=== PATIENT | male | born 1995 | race Caucasian/White ===

== ENCOUNTER → 2020-09-29 10:07 | Outpatient (CLI) | payer BC, SELFPAY ==
--- NOTE | 2020-09-29 10:28 | XR_ITS ---
PROCEDURE: XR KNEE LT 3V CLINICAL INDICATION: GRETA KNEE PAIN COMPARISON: No exams were available for comparison FINDINGS: No fracture or dislocation. No lytic or blastic change. There is normal mineralization. The joint spaces are well-preserved. No significant degenerative/arthritic changes. No erosive changes evident. Other findings:None. IMPRESSION: No acute findings. Dictated by: Christa Castellanos 09/29/2020 11:14 Christa Castellanos in [facility] 09/29/2020 11:14
--- NOTE | 2020-09-29 10:28 | XR_ITS ---
PROCEDURE: XR KNEE RT 3V CLINICAL INDICATION: GRETA KNEE PAIN Bilateral knee pain medial side of the right knee. COMPARISON: CR XR KNEE LT 3V from 09/29/2020 FINDINGS: No fracture or dislocation. No lytic or blastic change. There is normal mineralization. The joint spaces are well-preserved. No significant degenerative/arthritic changes. No erosive changes evident. Other findings:None. IMPRESSION: No acute findings. Dictated by: Christa Castellanos 09/29/2020 11:13 Christa Castellanos in [facility] 09/29/2020 11:13
[2020-09-29 10:30] LABS: Basophils # 0.1 K/mm3 (0-0.2); Basophils % 1.4 % (0.1-2.0); Eosinophils # 0.3 K/mm3 (0.0-0.4); Eosinophils % 7.9 % (0.1-12.0); Hematocrit 44.6 % (42.0-52.0); Lymphocytes # 1.9 K/mm3 (0.7-4.5); Lymphocytes % 44.9 % (10-50); Mean Corpuscular HGB Conc 33.8 g/dL (31.8-35.4); Mean Corpuscular Hemoglobin 30.4 pg (27.0-31.2); Mean Corpuscular Volume 90.1 fl (80-94); Mean Platelet Volume 7.3 fl (7.4-10.4); Monocytes # 0.3 K/mm3 (0.1-1.0); Monocytes % 6.6 % (1.7-9.3); Neutrophils # 1.7 K/mm3 (1.8-7.8); Neutrophils % 39.1 % (37.0-80.0); Platelet Count 244 K/mm3 (142-424); Red Blood Count 4.94 M/mm3 (4.60-6.20); Red Cell Distribution Width 13.5 % (11.5-17.5); White Blood Count 4.2 K/mm3 (4.8-10.8)
[2020-09-29 10:47] LABS: Chloride 105 mmol/L (98-107); Sodium 140 mmol/L (136-145)
[2020-09-29 10:48] LABS: Potassium 4.7 mmoL/L (3.5-5.1)
[2020-09-29 10:50] LABS: Alanine Aminotransferase 41 U/L (12-78); Albumin/Globulin Ratio 1.6 (1.1-1.8); Alkaline Phosphatase 55 U/L (38-126); Anion Gap 7.7 mEq/L (5-15); Aspartate Amino Transferase 40 U/L (17-59); Bilirubin,Total 0.6 mg/dl (0.2-1.3); Blood Urea Nitrogen 21 mg/dl (9-20); Carbon Dioxide 32 mmol/L (22.0-30.0); Estimated Glomerular Filt Rate 80 ml/min (>60); GFR (African American) 97 ML/MIN (>60); Globulin 3.2 g/dL (1.3-3.2); Total Protein,Serum 8.2 g/dl (6.3-8.2)
[2020-09-29 10:51] LABS: Glucose 82 mg/dl (74-100)
[2020-09-29 11:01] LABS: Erythrocyte Sedimentation Rate 15 mm/hr (0-15)
[2020-09-30 14:27] LABS: Anti-Centromere B Antibodies <0.2 AI (0.0-0.9); Anti-Jo-1 <0.2 AI (0.0-0.9); Anti-Smith Antibody <0.2 AI (0.0-0.9); Antichromatin Antibodies <0.2 AI (0.0-0.9); Antiscleroderma-70 Antibodies <0.2 AI (0.0-0.9); RNP Antibodies <0.2 AI (0.0-0.9); Sjogren's Anti-SS-A <0.2 AI (0.0-0.9); Sjogren's Anti-SS-B <0.2 AI (0.0-0.9)
[2020-09-30 15:38] LABS: Anti-DNA (DS) Ab Qn 1 IU/mL (0-9)
[2020-10-01 17:54] LABS: Anti-Cyclic Citrullinated Pept 3 units (0-19)
== END ==
PROVIDERS: Visit Provider Internal Medicine Adolescent Medicine
DX: M25.562 Pain in left knee (principal); M25.561 Pain in right knee
CPT/HCPCS: 36415; 73562; 80053; 85025; 85651; 86200; 86225; 86235

== ENCOUNTER 2020-10-31 17:00 | Outpatient (RCR) | payer BC, SELFPAY ==
--- NOTE | 2020-10-10 16:41 | HMH.PTOPEV ---
PT Outpatient Evaluation Rehab PT Outpatient Evaluation Start: 10/10/20 16:23 Freq: Status: Active Protocol: Document 10/10/20 16:24 SUSIELIANNA (Rec: 10/10/20 16:40 RHETT [id number]) Electronically Signed By Kade Blas, PT 10/10/20 16:24 Outpatient Therapy Subjective History Subjective History Patient is a 25 year old male presenting to outpatient PT with reports of B knee knee pain (L>R) starting approximatley 2 months ago. Patient reports symptom onset after increased activity levels after a prolonged period of being sedentary secondary to COVID-19. No recent diagnostics to report. Comorbidities include hx of R radius ORIF. Chief Complaint Pain Symptom Type Ache,Sharp,Dull Symptoms Relieved By Ice,Prescription Meds Symptoms Aggravated By Standing,Physical Activity, Walking Prior Functional Limitations None Current Functional Limitations Standing,Squatting,Recreation Activity,Stairs Symptom Description Intermittent Level of pain today (0-10) 2 Pain scale - at its best (0-10) 0 Pain scale - at its worst (0-10) 5 Hip/Knee Eval Gait Observation General Gait Pattern Observation No Deviations/Normal Assistive Device Assistive Devices None / NA Palpation Tenderness bilateral Knee Palpation Finding Tenderness Knee Palpation Overall Comment Medial joint line/compartment 3/4 MMT Hip Flexion Strength Grade 5 Normal Hip Abduction Strength Grade 5 Normal Hip Adduction Strength Grade 5 Normal Hip Extension Strength Grade 5 Normal Hip External Rotation Strength Grade 4- Good- Hip Internal Rotation Strength Grade 4- Good- Knee Extension Strength Grade 5 Normal Knee Flexion Strength Grade 5 Normal ROM Hip ROM Reason Not Measured Within Functional Limits Knee ROM Reason Not Measured Within Functional Limits Special Tests Knee Anterior Belinda Test Negative Left,Negative Right Knee Pivot Shift Test Negative Left,Negative Right Knee Posterior Sag ([place] Drawer) Test Negative Left,Negative Right Knee Valgus Stress Test Negative Left,Negative Right Knee Varus Stress Test Negative Left,Negative Right Knee Celestino Test Negative Left,Negative Right Outpatient Therapy Assessment Impairments Problems/Impairmments Palpation Tenderness,Impaired Range of M
== END 2020-10-31 17:05 | disposition home or self-care (01) ==
LOC: PT 17:00
PROVIDERS: PCP Internal Medicine Adolescent Medicine; Visit Provider Internal Medicine Adolescent Medicine
DX: M25.561 Pain in right knee (principal); M25.562 Pain in left knee
CPT/HCPCS: 97010; 97014; 97033; 97035; 97110; 97163; G0283

== ENCOUNTER 2020-12-11 01:25 | Emergency (ER) | payer BC, SELFPAY ==
[2020-12-11 01:26] VITALS: BP 139/92; PULSE 81; RESP 16; TEMP 37.1; O2SAT 100; BMI 27.9
--- NOTE | 2020-12-11 02:52 | CT_ITS ---
PROCEDURE INFORMATION: Exam: CT Abdomen And Pelvis With Contrast Exam date and time: 12/11/2020 2:52 AM Age: 25 years old Clinical indication: Patient HX: Rectal pain x couple weeks but much worse tonight TECHNIQUE: Imaging protocol: Computed tomography of the abdomen and pelvis with contrast. Radiation optimization: All CT scans at this facility use at least one of these dose optimization techniques: automated exposure control; mA and/or kV adjustment per patient size (includes targeted exams where dose is matched to clinical indication); or iterative reconstruction. Contrast material: ISOVUE 370; Contrast volume: 75 ml; Contrast route: INTRAVENOUS (IV); Other contrast: Oral, gastroview, 30; COMPARISON: No relevant prior studies available. FINDINGS: Lungs: Left lung base markings/opacities consistent with subsegmental atelectasis and/or scarring noted, although superimposed infiltrates cannot be excluded. Mediastinal space: Small hiatal hernia. Liver: Unremarkable. No definable mass or enhancing hepatic lesion. Gallbladder and bile ducts: Normal. No calcified stones. No ductal dilation. Pancreas: Normal. No ductal dilation. Spleen: Normal. No splenomegaly. Adrenal glands: Normal. No mass. Kidneys and ureters: Kidneys enhance symmetrically and there is no evidence for obstructive uropathy. Stomach and bowel: Unremarkable. No obstruction. No mucosal thickening. Appendix: The appendix is visualized and appears unremarkable. Intraperitoneal space: Unremarkable. No free air. No significant fluid collection. Vasculature: Unremarkable. No abdominal aortic aneurysm. Lymph nodes: Unremarkable. No enlarged lymph nodes. Urinary bladder: Unremarkable as visualized. Reproductive: Unremarkable as visualized. 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 Soft tissues: Unremarkable. IMPRESSION: 1. No overt acute inflammatory process or suspicious mass noted. No evidence for bowel obstruction. No ischiorectal fossa or perirectal abscess or abnormal fluid collection noted. 2. Small hiatal hernia. The
--- NOTE | 2020-12-11 02:52 | HMH.EDGENADL ---
ED Disposition Clinical Impression: Rectal or anal pain Disposition: Home, Self-Care Condition on Discharge: Good Instructions: DI for Acute Pain -- Adult Additional Instructions: call pcp this am Prescriptions: Ketorolac Tromethamine [Toradol 10mg tablet] 10 mg PO Q6HP PRN #10 tab MDD 40mg/day PRN Reason: Moderate To Severe Pain Prescription Printed Referrals: Wellington Patrick MD [Primary Care Provider] - - Critical Care Critical Care Time: No Attestation: On 12/11/20, the high probability of a clinically significant, sudden or life threatening deterioration of the following system(s) required my full and direct attention, intervention and personal management. The time I documented below is in addition to time spent performing reported procedures but includes the following listed in this critical care notation. Medical Decision Making - Medical Records Medical records reviewed: Yes: I reviewed the patient's medical records. - Jacob Inquiry Pt receiving controlled substance: No Vital Signs: 12/11/20 01:26 12/11/20 03:30 12/11/20 04:00 Temperature 98.7 F Temperature Source Oral Pulse Rate 63 69 Pulse Rate [Right] 81 Respiratory Rate 16 Blood Pressure 122/75 119/75 Blood Pressure [Right Arm] 139/92 H Blood Pressure Mean 90 87 Blood Pressure Mean [Right Arm] 107 02 Sat by Pulse Oximetry 100 100 100 12/11/20 04:30 Temperature Temperature Source Pulse Rate 67 Pulse Rate [Right] Respiratory Rate Blood Pressure 122/84 Blood Pressure [Right Arm] Blood Pressure Mean 94 Blood Pressure Mean [Right Arm] 02 Sat by Pulse Oximetry 100 - Lab Data Lab results reviewed: Yes: I reviewed the patient's lab results. Lab Results 12/11/20 02:50: Stool Occult Blood Negative 12/11/20 02:55: WBC 6.2, RBC 4.85, Hgb 14.8, Hct 43.6, MCV 90.0, MCH 30.5, MCHC 33.9, RDW 13.7, Plt Count 236, MPV 7.8, Neut % (Auto) 42.7, Lymph % (Auto) 41.6, Calhoun % (Auto) 6.3, Eos % (Auto) 8.3, Baso % (Auto) 1.1, Neut # (Auto) 2.6, Lymph # (Auto) 2.6, Calhoun # (Auto) 0.4, Eos # (Auto) 0.5 H, Baso # (Auto) 0.1, ESR 20 H 12/11/20 02:55: Sodium 136, Potassium 4.1, Chloride 101, Carbon Dioxide 28, Anion Gap 11.1, BUN 19, Creatinine 1.20, Estimated Creat Clear 116, Estimated GFR 73, Est GFR ( Amer) 88, Glucose 106 H, Calcium 9.8, Total Bilirubin 0.5, AST 34, ALT 22, Alkaline Phosphatase 57, C-Reactive Protein 1.7, Total Protein 8.1, Albumin 4.9, Globulin 3.2, Albumin/Globulin Ratio 1.5, Procalcitonin 0.047 Result diagrams: 12/11/20 02:55 12/11/20 02:55 Orders (Tests/Meds): ED MEDICATIONS Generic Name Dose Route Start Last Admin Trade Name Freq PRN Reason Stop Dose Admin Sodium Chloride 1,000 mls @ 999 mls/hr 12/11/20 03:00 12/11/20 03:04 Sod Chlor 0.9% 1000ml Bag IV 12/11/20 04:00 999 mls/hr .Q1H1M BOYD Administration Discontinued Medications Generic Name Dose Route Start Last Admin Trade Name Freq PRN Reason Stop Dose Admin Diatrizoate Meglum/Diatrizoate Sod 30 ml 12/11/20 02:52 12/11/20 03:00 Diatrizoate Jayde 66% & Diatrizoate Na 10% 30ml Udc PO 12/11/20 02:53 30 ml ONCE ONE Administration Iopamidol 75 ml 12/11/20 05:29 12/11/20 05:30 Iopamidol-370 (76%);100ml Bottle IV 12/11/20 05:30 75 ml ONCE ONE Administration Ketorolac Tromethamine 30 mg 12/11/20 02:52 12/11/20 03:04 Ketorolac 30mg/Ml Vial IV 12/11/20 02:53 30 mg ONCE ONE Administration Sodium Chloride 10 ml 12/11/20 05:29 12/11/20 05:30 Sodium Chloride 0.9% 10ml Syr (Rad Only) IV 12/11/20 05:30 10 ml ONCE ONE Administration - CT Data CT Scan: Abdomen, Pelvis Time Received: 06:[address] Reviewed: Yes: I have viewed the radiologist's interpretation Preliminary Findings: Normal/NAD Medical Decision Narrative: call pcp this am to have visual exam General Adult HPI - General Chief complaint: PAIN Stated complaint: pain in rectum Time Seen by Provider: 12/11/20 02:00
[2020-12-11 02:58] LABS: Occult Blood,Stool Negative (Negative)
--- NOTE | 2020-12-11 03:01 | PC.NURSE ---
pt finished contrast notified xray
[2020-12-11 03:05] LABS: Basophils # 0.1 K/mm3 (0-0.2); Basophils % 1.1 % (0.1-2.0); Eosinophils # 0.5 K/mm3 (0.0-0.4); Eosinophils % 8.3 % (0.1-12.0); Hematocrit 43.6 % (42.0-52.0); Hemoglobin 14.8 g/dL (14.1-18.0); Lymphocytes # 2.6 K/mm3 (0.7-4.5); Lymphocytes % 41.6 % (10-50); Mean Corpuscular HGB Conc 33.9 g/dL (31.8-35.4); Mean Corpuscular Hemoglobin 30.5 pg (27.0-31.2); Mean Platelet Volume 7.8 fl (7.4-10.4); Monocytes # 0.4 K/mm3 (0.1-1.0); Monocytes % 6.3 % (1.7-9.3); Neutrophils # 2.6 K/mm3 (1.8-7.8); Neutrophils % 42.7 % (37.0-80.0); Platelet Count 236 K/mm3 (142-424); Red Blood Count 4.85 M/mm3 (4.60-6.20); Red Cell Distribution Width 13.7 % (11.5-17.5); White Blood Count 6.2 K/mm3 (4.8-10.8)
[2020-12-11 03:13] LABS: Alanine Aminotransferase 22 U/L (12-78); Albumin Level 4.9 g/dl (3.5-5.0); Albumin/Globulin Ratio 1.5 (1.1-1.8); Alkaline Phosphatase 57 U/L (38-126); Anion Gap 11.1 mEq/L (5-15); Aspartate Amino Transferase 34 U/L (17-59); Bilirubin,Total 0.5 mg/dl (0.2-1.3); Blood Urea Nitrogen 19 mg/dl (9-20); Calcium 9.8 mg/dl (8.4-10.2); Carbon Dioxide 28 mmol/L (22.0-30.0); Chloride 101 mmol/L (98-107); Creatinine Clearance Estimated 116 mL/min (50-200); Estimated Glomerular Filt Rate 73 ml/min (>60); GFR (African American) 88 ML/MIN (>60); Globulin 3.2 g/dL (1.3-3.2); Glucose 106 mg/dl (74-100); Potassium 4.1 mmoL/L (3.5-5.1); Sodium 136 mmol/L (136-145); Total Protein,Serum 8.1 g/dl (6.3-8.2)
[2020-12-11 03:19] LABS: C-Reactive Protein 1.7 mg/L (0-4)
[2020-12-11 03:30] VITALS: BP 122/75; PULSE 63; O2SAT 100
[2020-12-11 03:32] LABS: Procalcitonin 0.047 ng/mL (0.0-2.0)
[2020-12-11 03:36] LABS: Erythrocyte Sedimentation Rate 20 mm/hr (0-15)
[2020-12-11 04:00] VITALS: BP 119/75; PULSE 69; O2SAT 100
[2020-12-11 04:30] VITALS: BP 122/84; PULSE 67; O2SAT 100
[2020-12-11 06:30] VITALS: BP 124/75; PULSE 68; RESP 16; TEMP 37.1; O2SAT 100
== END 2020-12-11 06:36 | disposition home or self-care (01) ==
PROVIDERS: Emergency Provider Emergency Medicine; PCP Internal Medicine Adolescent Medicine
DX: K62.89 Other specified diseases of anus and rectum (principal)
CPT/HCPCS: 74177; 80053; 82272; 84145; 85025; 85651; 86140; 99283; G0328; Q9967

== ENCOUNTER → 2022-11-30 10:54 | Outpatient (CLI) | payer BC, SELFPAY ==
--- NOTE | 2022-11-30 11:00 | XR_ITS ---
FINAL REPORT CLINICAL HISTORY: ankle/lower leg pain FINDINGS: Two views of the left tibia-fibula demonstrate no acute fracture or dislocation. The joint spaces appear normal. The visualized bony structures are well aligned. No soft tissue abnormality is seen. IMPRESSION: No acute process. Reviewed, Interpreted and Dictated by Edd Bishop III, MD Transcribed by Imer Stauffer Authenticated and [facility]
--- NOTE | 2022-11-30 11:00 | XR_ITS ---
FINAL REPORT CLINICAL HISTORY: ankle pain FINDINGS: LEFT ANKLE: Three weight-bearing views of the left ankle were obtained. There is no acute fracture or dislocation. The joint spaces and mortise are intact. There is no soft tissue abnormality. IMPRESSION: No acute process. Reviewed, Interpreted and Dictated by Edd Bishop III, MD Transcribed by Imer Stauffer Authenticated and [facility]
--- NOTE | 2022-11-30 11:00 | XR_ITS ---
FINAL REPORT CLINICAL HISTORY: ankle/lower leg pain FINDINGS: Two views of the right tibia-fibula demonstrate no acute fracture or dislocation. The joint spaces appear normal. The visualized bony structures are well aligned. No soft tissue abnormality is seen. IMPRESSION: No acute process. Reviewed, Interpreted and Dictated by Edd Bishop III, MD Transcribed by Imer Stauffer Authenticated and [facility]
--- NOTE | 2022-11-30 11:00 | XR_ITS ---
FINAL REPORT CLINICAL HISTORY: foot pain FINDINGS: 3 weight-bearing views of the right foot were obtained. There is no acute fracture or dislocation. The joint spaces are intact. The soft tissues are unremarkable. IMPRESSION: No acute process. Reviewed, Interpreted and Dictated by Edd Bishop III, MD Transcribed by Imer Stauffer Authenticated and [facility]
--- NOTE | 2022-11-30 11:00 | XR_ITS ---
FINAL REPORT CLINICAL HISTORY: foot pain FINDINGS: 3 weight-bearing views of the left foot were obtained. There is no acute fracture or dislocation. The joint spaces are intact. The soft tissues are unremarkable. IMPRESSION: No acute process. Reviewed, Interpreted and Dictated by Edd Bishop III, MD Transcribed by Imer Stauffer Authenticated and [facility]
--- NOTE | 2022-11-30 11:00 | XR_ITS ---
FINAL REPORT CLINICAL HISTORY: ankle pain FINDINGS: RIGHT ANKLE: Three weight-bearing views of the right ankle were obtained. There is no acute fracture or dislocation. The joint spaces and mortise are intact. There is no soft tissue abnormality. IMPRESSION: No acute process. Reviewed, Interpreted and Dictated by Edd Bishop III, MD Transcribed by Imer Stauffer Authenticated and [facility]
== END ==
PROVIDERS: PCP Internal Medicine Adolescent Medicine; Visit Provider Podiatrist
DX: M25.572 Pain in left ankle and joints of left foot (principal); M25.571 Pain in right ankle and joints of right foot; M79.671 Pain in right foot; M79.672 Pain in left foot; M79.661 Pain in right lower leg; M79.662 Pain in left lower leg
CPT/HCPCS: 73590; 73610; 73630